=== PATIENT | female | born 1945 | race Caucasian/White ===

== ENCOUNTER 2019-10-19 07:10 | Observation (INO) ==
[2019-10-19 07:50] LABS: Basophils % 0.3 %; Eosinophils % 0.1 %; Hematocrit 41.7 % (35.3-44.9); Hemoglobin 13.9 g/dL (11.5-15.4); Immature Granulocytes % 0.4 % (0-4); Lymphocytes # 0.9 K/mcL (0.6-4.6); Mean Corpuscular HGB Conc 33.3 g/dL (31.6-35.5); Mean Corpuscular Hemoglobin 30.9 pg (28.0-33.3); Mean Corpuscular Volume 92.7 fL (83.0-100.0); Mean Platelet Volume 9.7 fL (9.4-12.4); Monocytes # 0.3 K/mcL (0.0-1.3); Monocytes % 2.3 %; Platelet Count 265 K/mcL (140-400); Red Cell Distribution Width 12.7 % (11.5-14.5); Segmented Neutrophils % 88.9 %; White Blood Count 11.3 K/mcL (4.3-11.1)
[2019-10-19] MEDS ORDERED: Aspirin 325 MG TABLET PO ONE (07:50)
[2019-10-19 08:08] LABS: BUN/Creatinine Ratio 33 (6-26); Blood Urea Nitrogen 19 mg/dL (8-23); Calcium 9.3 mg/dL (8.6-10.3); Carbon Dioxide 23 mEq/L (23-29); Chloride 105 mEq/L (98-107); Glucose 134 mg/dL (70-105); Osmolality,Calculated 286 (280-300); Sodium 136 mEq/L (136-145); eGFR For African Americans > 60 (> 60); eGFR For Non-African Americans > 60 (> 60)
[2019-10-19 08:09] LABS: Troponin I < 0.03 ng/mL (< 0.04)
[2019-10-19] MEDS: Nitroglycerin 0.4 MG TAB.SUBL SL ONE ×2 (08:10→08:16)
[2019-10-19] MEDS ORDERED: Morphine Sulfate 2 MG/ML SYRINGE IVP ONE (08:50)
[2019-10-19] MEDS ORDERED: Ondansetron 4 MG/2 ML VIAL IVP PRN (11:05)
[2019-10-19] MEDS ORDERED: Nitroglycerin 0.4 MG TAB.SUBL SL PRN (11:09)
[2019-10-19] MEDS ORDERED: Perflutren Lipid Microsphere 1.3 ML in 0.9 % Sodium Chloride 8.7 ML IVP PRN (11:22)
[2019-10-19] MEDS: *HR* Heparin 5,000 UNIT/ML VIAL SQ SCH (18:23)
[2019-10-20] MEDS: *HR* Heparin 5,000 UNIT/ML VIAL SQ SCH (05:28)
[2019-10-20] MEDS ORDERED: Regadenoson 0.4 MG/5 ML SYRINGE IVP ONE (06:42)
[2019-10-20 09:51] VITALS: BP 102/61
== END 2019-10-20 14:29 | disposition home or self-care (01) ==
LOC: EMEROOARM 07:10 → 3ANU 07:10 → SUATTDRO 11:01 → 3ANU 11:29
PROVIDERS: ADMIT Internal Medicine; ATTEND Internal Medicine